=== PATIENT | female | born 1965 | race African-American/Black ===

== ENCOUNTER 2017-01-16 10:17 | Outpatient (REF) | END 2017-01-16 21:04 | disposition home or self-care (01) | LOC: MRD 10:17 | PROVIDERS: ATTEND Internal Medicine Pulmonary Disease | DX: Z02.1 Encounter for pre-employment examination (principal); R76.11 Nonspecific reaction to tuberculin skin test without active tuberculosis | CPT/HCPCS: 71010; Q0092 ==